=== PATIENT | male | born 1965 | race Caucasian/White ===

== ENCOUNTER 2017-03-10 11:06 | Inpatient (IN) | payer BC, OTHER ==
[~2017-03-10] VITALS: Ht 177.8 cm; Wt 109.3 kg
[2017-03-10] MEDS ORDERED: SODIUM CHLORIDE 0.9% 1000ML 1,000 ML IV STA (11:13)
[2017-03-10] MEDS ORDERED: MORPHINE SULFATE 4 MG/ML SYR IV STA (11:13)
[2017-03-10] MEDS ORDERED: ONDANSETRON HCL INJ 2 MG/ML VIAL IV STA (11:13)
[2017-03-10] MEDS ORDERED: PIPER-TAZ 3.375 GM 50 ML IV STA (11:13)
[2017-03-10] MEDS ORDERED: DIATRIZOATE MEGL/DIATRIZOA SOD 30 ML BTL PO ONE (11:44)
[2017-03-10 11:49] LABS: BASOPHILS # (AUTO) 0.1 (0.0-0.1); BASOPHILS % 0.6 % (0.0-1.0); EOSINOPHILS # (AUTO) 0.1 (0.0-0.4); EOSINOPHILS % 0.8 % (0.0-6.0); HEMATOCRIT 43.7 % (38.2-49.6); HEMOGLOBIN 15.4 g/dL (14.0-18.0); LYMPHOCYTES # (AUTO) 2.3 (1.0-3.2); LYMPHOCYTES % 18.9 % (18.0-39.1); MEAN CORPUSCULAR HGB CONC 35.2 g/dL (31-35); MEAN CORPUSCULAR VOLUME 90.9 fL (81-99); MONOCYTES # (AUTO) 0.9 (0.2-0.8); MONOCYTES % 7.6 % (4.4-11.3); NEUTROPHILS # (AUTO) 8.6 (2.1-6.9); NEUTROPHILS % 71.6 % (38.7-80.0); PLATELET COUNT 190 x10e3/uL (140-360); RED BLOOD COUNT 4.81 x10e6/uL (4.3-5.7); RED CELL DISTRIBUTION WIDTH 12.3 % (11.7-14.4)
[2017-03-10 12:11] LABS: ALANINE AMINOTRANSFERASE 34 IU/L (0-55); ALBUMIN 4.2 g/dL (3.5-5.0); ALBUMIN/GLOBULIN RATIO 1.1 (0.8-2.0); ALKALINE PHOSPHATASE 94 IU/L (40-150); ANION GAP 13.8 mmol/L (8-16); BLOOD UREA NITROGEN 11 mg/dL (7-26); BUN/CREATININE RATIO 11 (6-25); CALCIUM 9.4 mg/dL (8.4-10.2); CARBON DIOXIDE 27 mmol/L (22-29); CHLORIDE 101 mmol/L (98-107); CREATINE KINASE 99 IU/L (30-200); CREATININE, SERUM 0.98 mg/dL (0.72-1.25); EST GLOMERULAR FILTRATION RATE > 60 ML/MIN (60-); GLUCOSE 100 mg/dL (74-118); LIPASE 9 U/L (8-78); POTASSIUM 3.8 mmol/L (3.5-5.1); SODIUM 138 mmol/L (136-145)
[2017-03-10 12:18] LABS: TROPONIN I 0.006 ng/mL (0-0.300)
[2017-03-10] MEDS ORDERED: MORPHINE SULFATE 2 MG/ML SYR IV STA (12:48)
[2017-03-10] MEDS ORDERED: MORPHINE SULFATE 5 MG/ML VIAL IV SCH (13:00)
--- NOTE | 2017-03-10 13:16 | Diagnostic Imaging Report ---
PROCEDURE: CT ABDOMEN AND PELVIS WITH CONTRAST TECHNIQUE: The abdomen and pelvis were scanned utilizing a multidetector helical scanner from the diaphragm to the lesser trochanter after the IV administration of 100 cc of Isovue 370 and the oral administration of Gastrografin. Coronal and sagittal multiplanar reformations were obtained. COMPARISON: CT abdomen pelvis 08/10/2008. INDICATIONS: LEFT LOWER QUADRANT PAIN FINDINGS: LOWER THORAX: Normal. HEPATOBILIARY: Diffuse hepatic steatosis. No focal hepatic lesions. No biliary ductal dilatation. SPLEEN: No splenomegaly. PANCREAS: No focal masses or ductal dilatation. ADRENALS: No adrenal nodules. KIDNEYS/URETERS: No hydronephrosis, stones, or solid mass lesions. PELVIC ORGANS/BLADDER: Bilateral vasectomy clips. PERITONEUM / RETROPERITONEUM: No free air or fluid. LYMPH NODES: No lymphadenopathy. VESSELS: Severe atherosclerotic calcifications in the aorta and the origins of the celiac axis and bilateral renal arteries. Mild vertical appearance of the celiac axis with mild narrowing which suggest possible median arcuate ligament syndrome. GI TRACT: Significant inflammatory changes around the sigmoid colon surrounding multiple colonic diverticula. No free fluid or free air. No distention or wall thickening in the remaining bowel. 3.0 cm duodenal diverticulum off the second segment of the duodenum. Short appendix is normal. BONES AND SOFT TISSUES: Mild degenerative changes in lumbar spine. Grade 1 anterolisthesis of L5 on S1 with bilateral L5 pars defect and moderate disc space narrowing. Previous surgery around the umbilicus with a surgical clip. IMPRESSION: 1. Acute sigmoid diverticulitis. No evidence of perforation. 2. Severe vascular calcifications. 3. Diffuse hepatic steatosis. Dictated by: Alek Lo M.D. on 03/10/2017 at 13:25 Electronically approved by: Alek Lo M.D. on 03/10/2017 at 13:25
[2017-03-10 14:31] LABS: BILIRUBIN,URINE NEGATIVE (NEGATIVE); CLARITY,URINE CLEAR (CLEAR); COLOR,URINE YELLOW (YELLOW); KETONES,URINE NEGATIVE (NEGATIVE); LEUKOCYTE ESTERASE ,URINE NEGATIVE (NEGATIVE); NITRITE,URINE NEGATIVE (NEGATIVE); PROTEIN,URINE DIPSTICK NEGATIVE (NEGATIVE); URINE UROBILINOGEN 0.2 mg/dL (0.2 - 1)
[2017-03-10] MEDS ORDERED: METRONIDAZOLE 500MG/NS 100ML 100 ML IV STA (15:14)
[2017-03-10] MEDS ORDERED: CIPROFLOXACIN 400 MG/D5W 200ML 200 ML IV ONE (15:45)
[2017-03-10] MEDS ORDERED: MORPHINE SULFATE 2 MG/ML SYR IV PRN (16:00)
[2017-03-10] MEDS ORDERED: SODIUM CHLORIDE FLUSH 10 ML SYR INJ PRN (16:00)
[2017-03-10] MEDS: SODIUM CHLORIDE 0.9% 1000ML 1,000 ML IV SCH (16:34)
[2017-03-10] MEDS: METRONIDAZOLE 500MG/NS 100ML 100 ML IV SCH (17:00)
--- NOTE | 2017-03-10 17:09 | Diagnostic Imaging Report ---
PROCEDURE: A single AP view of the chest. COMPARISON: None. INDICATIONS: ABDOMEN PAIN FINDINGS: Lines/tubes: None. Lungs: The lungs are well inflated and clear. There is no evidence of pneumonia or pulmonary edema. Pleura: There is no pleural effusion or pneumothorax. Heart and mediastinum: The heart and the mediastinum are unremarkable. Bones: No acute bony abnormality. IMPRESSION: No acute cardiopulmonary disease. Dictated by: Alek Lo M.D. on 03/10/2017 at 17:18 Electronically approved by: Alek Lo M.D. on 03/10/2017 at 17:18
[2017-03-10] MEDS: ONDANSETRON HCL INJ 2 MG/ML VIAL IV PRN ×2 (17:12→21:08)
[2017-03-10] MEDS: MORPHINE SULFATE 4 MG/ML SYR IV PRN ×2 (17:12→21:09)
[2017-03-10 17:27] VITALS: BP 119/87
[2017-03-10] MEDS: LEVOFLOXACIN 750MG/D5W 150ML 150 ML IV SCH (17:59)
[2017-03-10] MEDS ORDERED: IOPAMIDOL 370 MG/ML 200 ML INFUS..BTL INJ ONE (18:41)
[2017-03-10 20:54] VITALS: BP 118/75
[2017-03-11] VITALS (8 sets, daily range): BP systolic 96–108; BP diastolic 60–63
[2017-03-11] MEDS: METRONIDAZOLE 500MG/NS 100ML 100 ML IV SCH ×3 (00:32→17:58)
[2017-03-11] MEDS: SODIUM CHLORIDE 0.9% 1000ML 1,000 ML IV SCH ×3 (00:32→16:15)
[2017-03-11] MEDS: ONDANSETRON HCL INJ 2 MG/ML VIAL IV PRN ×4 (01:44→20:17)
[2017-03-11] MEDS: MORPHINE SULFATE 4 MG/ML SYR IV PRN ×4 (01:44→20:17)
[2017-03-11 06:34] LABS: BASOPHILS # (AUTO) 0.1 (0.0-0.1); BASOPHILS % 0.8 % (0.0-1.0); EOSINOPHILS # (AUTO) 0.2 (0.0-0.4); EOSINOPHILS % 2.6 % (0.0-6.0); HEMATOCRIT 38.4 % (38.2-49.6); HEMOGLOBIN 13.4 g/dL (14.0-18.0); LYMPHOCYTES # (AUTO) 2.1 (1.0-3.2); LYMPHOCYTES % 28.8 % (18.0-39.1); MEAN CORPUSCULAR HEMOGLOBIN 31.7 pg (28-32); MEAN CORPUSCULAR HGB CONC 34.9 g/dL (31-35); MEAN CORPUSCULAR VOLUME 90.8 fL (81-99); MONOCYTES # (AUTO) 0.6 (0.2-0.8); MONOCYTES % 8.6 % (4.4-11.3); NEUTROPHILS # (AUTO) 4.2 (2.1-6.9); NEUTROPHILS % 58.4 % (38.7-80.0); PLATELET COUNT 159 x10e3/uL (140-360); RED BLOOD COUNT 4.23 x10e6/uL (4.3-5.7); RED CELL DISTRIBUTION WIDTH 12.4 % (11.7-14.4)
[2017-03-11 07:05] LABS: ALANINE AMINOTRANSFERASE 28 IU/L (0-55); ALBUMIN 3.2 g/dL (3.5-5.0); ALKALINE PHOSPHATASE 86 IU/L (40-150); ANION GAP 11.1 mmol/L (8-16); BLOOD UREA NITROGEN 9 mg/dL (7-26); BUN/CREATININE RATIO 10 (6-25); CALCIUM 8.8 mg/dL (8.4-10.2); CARBON DIOXIDE 28 mmol/L (22-29); CHLORIDE 103 mmol/L (98-107); CREATININE, SERUM 0.87 mg/dL (0.72-1.25); EST GLOMERULAR FILTRATION RATE > 60 ML/MIN (60-); GLUCOSE 89 mg/dL (74-118); POTASSIUM 4.1 mmol/L (3.5-5.1); SODIUM 138 mmol/L (136-145)
--- NOTE | 2017-03-11 14:02 | Consultation ---
DATE OF CONSULTATION: March 11, 2017 GASTROENTEROLOGY CONSULT REASON FOR CONSULT: Acute left lower quadrant pain for 2 days. He was found to have acute diverticulitis on clinical exam, as well as confirmed by CT. HISTORY OF PRESENT ILLNESS: A 51-year-old very pleasant white male with an unremarkable past medical history. However, he has a remarkable surgical history of perforated appendix 25 years ago that required emergency exploratory laparotomy followed by some other abdominal surgeries. He is not on any prescription drugs. He presented to the emergency room with acute onset of left lower quadrant pain. No fever or chills. No intestinal manifestations. Blood work revealed a white count of 12.04 along with normal electrolytes. CT of the abdomen and pelvis with IV and oral contrast revealed fatty liver and acute sigmoid diverticulitis without any local complications. Patient was started empirically on IV levofloxacin, as well as metronidazole. White count has come down to 7.18. He has never had any attack of sigmoid diverticulitis in the past. Patient has had a colonoscopy by Dr. Lai more than 8 years ago. As per patient, multiple polyps were removed. Colonoscopy was technically very difficult due to scar tissue. Patient ignored the interval surveillance colonoscopy. He has a never family history for colon cancer or polyps. REVIEW OF SYSTEMS: A 12-point system reviewed, and symptomatology is limited to GI system. PAST MEDICAL HISTORY: As per HPI. PAST SURGICAL HISTORY: As per HPI. SOCIAL HISTORY: and lives with his . No smoking, alcohol or any illicit drug use. ALLERGIES: NONE. HOME MEDICATIONS: None. INPATIENT MEDICATIONS: Reviewed. PHYSICAL EXAMINATION VITAL SIGNS: Temperature 97.9, pulse 64, respirations 18, blood pressure ranging from 108/62 to 99/62, oxygen saturation 95% on room air. GENERAL: Not in any acute distress. HEENT: Moist mucous membranes. Anicteric sclerae. No neck or axillary lymphadenopathy. CV: S1 and S2 regular. LUNGS: Bilaterally grossly clear. ABDOMEN: Soft. Healed midline lower quadrant ex lap scar. Left lower quadrant tenderness without any rebound, rigidity or guarding. Positive bowel sounds. EXTREMITIES: Warm. No leg edema. LABS: WBC has come down to 7.18 from 12.04, hemoglobin 13.4, hematocrit 38.4, MCV 90.8, and platelet count of 159,000. Electrolytes normal. Total bilirubin was 1.4, which has come down to 0.7 on repeat draw. Liver enzymes normal. CT of the abdomen and pelvis with IV and oral contrast showed: 1. Acute sigmoid diverticulitis. No evidence of perforation. 2. Severe vascular calcifications. 3. Diffuse hepatic steatosis. IMPRESSION: Uncomplicated sigmoid diverticulitis. PLAN: Will continue clear liquid diet. Continue intravenous levofloxacin, as well as metronidazole. Monitor him clinically. Will advance diet slowly. Once the patient's abdominal exam improves and he is no longer having localized tenderness, then the patient can be discharged home on a 10-day course of oral antibiotics. I have given him my card. I will follow him in my office within 1-2 weeks of discharge. Patient will benefit from surveillance colonoscopy, which can electively be done as an outpatient once diverticulitis has completely healed. I thank Dr. Jang for allowing me to participate in the care of this patient. Job#: [id number] RICARDO
[2017-03-11] MEDS: LEVOFLOXACIN 750MG/D5W 150ML 150 ML IV SCH (16:15)
--- NOTE | 2017-03-11 19:40 | History and Physical ---
Primary care physician: Dr. Tony Long CHIEF COMPLAINT: Acute abdominal pain associated with diverticulitis. HISTORY: The patient is a pleasant 51-year-old male who experienced a sudden onset of abdominal pain in the left lower quadrant area. The patient's pain was so severe he came to the emergency room. Severity described as 8/10. Patient's CT scan in the emergency room found that the patient has acute sigmoid diverticulitis. No evidence of perforation. He has severe vascular calcification, however, with diffuse hepatic steatosis. The patient is otherwise stable at this time. PAST MEDICAL HISTORY: Perforated appendix, status post appendectomy and lower back surgery. Large abdominal scar with a lot of scar in the abdominal area per patient. Chronic abdominal pain but not as severe as this pain. HOME MEDICATIONS: None. ALLERGIES: NO KNOWN DRUG ALLERGIES. SOCIAL HISTORY: Patient does not smoke or use alcohol. REVIEW OF SYSTEMS: Left lower quadrant abdominal pain associated with nausea and vomiting. PHYSICAL EXAMINATION: GENERAL: The patient is in no acute distress. He is awake. VITAL SIGNS: Temperature is 97. Blood pressure 103/63. Pulse rate 85. Respirations 20. HEENT: Normocephalic, atraumatic, anicteric. NECK: Supple grossly. PULMONARY: Diminished breath sounds. CARDIOVASCULAR: Is regular rate and rhythm. ABDOMEN: Soft. Tenderness in the left lower quadrant area. EXTREMITIES: No cyanosis or edema. NEUROLOGIC: No focal deficit. CT scan showed acute diverticulitis. WBC is 12.0. Hemoglobin 15.4. Hematocrit 43.7 and platelet count 190,000. Chemistry: Sodium is 138. Potassium 3.8, chloride 101, bicarb 27, BUN 11, creatinine 0.9. Glucose is 100. Urinalysis unremarkable. IMPRESSION: 1. Acute sigmoid diverticulitis. 2. Abdominal pain, nausea and vomiting. PLAN: Continue with IV antibiotics. Consultation with Dr. Matilda Youssef. Repeat lab in the morning. IV fluids. The patient should be on clear liquid diet for now. Job#: [id number]
[2017-03-12] VITALS: BP 112/58
[2017-03-12] MEDS: METRONIDAZOLE 500MG/NS 100ML 100 ML IV SCH ×3 (00:23→17:02)
[2017-03-12 01:17] VITALS: BP 112/58
[2017-03-12] MEDS: SODIUM CHLORIDE 0.9% 1000ML 1,000 ML IV SCH ×3 (01:39→22:30)
[2017-03-12] MEDS: ONDANSETRON HCL INJ 2 MG/ML VIAL IV PRN ×5 (04:30→21:38)
[2017-03-12] MEDS: MORPHINE SULFATE 4 MG/ML SYR IV PRN ×4 (04:41→21:38)
[2017-03-12 08:00] VITALS: BP 104/62
[2017-03-12] MEDS: POLYETHYLENE GLYCOL 3350 17 GM PACK PO SCH ×2 (09:12→16:38)
[2017-03-12 10:21] VITALS: BP 112/58
[2017-03-12 12:00] VITALS: BP 112/77
[2017-03-12] MEDS: LORATADINE 10 MG TAB PO SCH (14:19)
[2017-03-12] MEDS ORDERED: OLOPATADINE 5 ML BTL OP SCH (15:00)
[2017-03-12 16:00] VITALS: BP 112/67
[2017-03-12] MEDS: LEVOFLOXACIN 750MG/D5W 150ML 150 ML IV SCH (16:14)
[2017-03-12] MEDS: OLOPATADINE 5 ML BTL OP SCH ×2 (16:30→21:37)
--- NOTE | 2017-03-12 21:44 | Progress Note ---
DATE: March 12, 2017 DATE OF : 1965 SUBJECTIVE: Patient reports improvement in left lower abdominal pain. He is on clear liquid diet. He would like to get the diet advanced to at least soft food. No fever or chills. REVIEW OF SYSTEMS GENERAL: No weakness, fatigue or any fever. CVS: No chest pain, palpitations. RESPIRATORY: No cough or expectoration. INPATIENT MEDICATIONS: Morphine sulfate, intravenous metronidazole, as well as levofloxacin, along with other medications. PHYSICAL EXAMINATION VITAL SIGNS: Temperature 96.9, pulse 66, respirations 18, blood pressure 112/67, oxygen saturation 97% on room air. GENERAL: Not in any acute distress. HEENT: Moist mucous membranes. Anicteric sclerae. No neck or axillary adenopathy. CV: S1/S2 regular. LUNGS: Bilaterally grossly clear. ABDOMEN: Soft, palpable mild left lower quadrant tenderness, which has improved. No rebound, rigidity or guarding. Positive bowel sounds. EXTREMITIES: Warm. No leg edema. LAB: No lab drawn today. IMPRESSION: Patient has complicated sigmoid diverticulitis. PLAN: Continue IV fluid and intravenous antibiotic. Low-residue diet. Surgery consult. Follow clinically. If patient's abdominal examination progressively improves, then IV antibiotic can be switched to oral. He can be sent home on 7 to 10-day course of oral antibiotic. Will follow him in my office within 1 week after discharge. Patient has my business card. Job#: [id number] CQ
[2017-03-13] MEDS: METRONIDAZOLE 500MG/NS 100ML 100 ML IV SCH ×3 (00:13→17:45)
[2017-03-13 02:04] VITALS: BP 117/69
[2017-03-13] MEDS: MORPHINE SULFATE 4 MG/ML SYR IV PRN ×4 (04:30→19:42)
[2017-03-13 07:58] VITALS: BP 109/59
[2017-03-13] MEDS: SODIUM CHLORIDE 0.9% 1000ML 1,000 ML IV SCH (08:00)
[2017-03-13 08:42] VITALS: BP 109/59
[2017-03-13] MEDS: OLOPATADINE 5 ML BTL OP SCH ×3 (08:42→20:13)
[2017-03-13] MEDS: POLYETHYLENE GLYCOL 3350 17 GM PACK PO SCH ×2 (09:00→16:22)
[2017-03-13] MEDS: LORATADINE 10 MG TAB PO SCH (09:00)
--- NOTE | 2017-03-13 10:27 | Progress Note ---
DATE: March 13, 2017 GI PROGRESS NOTE SUBJECTIVE: Patient reports improvement in the left lower quadrant pain. He was able to tolerate solid food this morning. No fever or chills. REVIEW OF SYSTEMS GENERAL: No weakness, lethargy, drowsiness. CVS: No chest pain or palpitations. RESPIRATORY: No cough or expectoration. MEDICATIONS: Morphine and metronidazole as well as levofloxacin intravenously, Zofran, loratadine, and normal saline IV fluids. PHYSICAL EXAMINATION VITAL SIGNS: Temperature 97.9, pulse 73, respirations 18, blood pressure 109/59, oxygen saturation 97% on room air. GENERAL: Not in any acute distress. HEENT: Moist mucous membranes. Anicteric sclerae. No neck or axillary adenopathy. CV: S1, S2 regular. LUNGS: Bilaterally grossly clear. ABDOMEN: Soft and nondistended. Mild left lower quadrant tenderness on deep palpation without rebound, rigidity or any guarding. Positive bowel sounds. EXTREMITIES: Warm. No leg edema. LAB: No lab drawn today. IMPRESSION: Uncomplicated sigmoid diverticulitis. PLAN: The abdominal exam is still showing tenderness; therefore, we will continue intravenous antibiotic and continue low-residue diet. Surgery consult awaited. The patient explains that he has to attend some on Thursday. Therefore, he would like to get out of the hospital before Thursday. We will reassess his clinical exam tomorrow. Depending on that, if the abdominal exam improves, switch to oral antibiotic and discharge him home on 7 to 10 day course of oral antibiotic. We will follow him in my office within 1 week post discharge. The patient has my business card. Job#: [id number]
[2017-03-13 12:12] VITALS: BP 109/60
[2017-03-13] MEDS: LEVOFLOXACIN 750MG/D5W 150ML 150 ML IV SCH (16:22)
[2017-03-13 16:23] VITALS: BP 108/56
[2017-03-13] MEDS: ONDANSETRON HCL INJ 2 MG/ML VIAL IV PRN (19:42)
[2017-03-13] MEDS ORDERED: MONTELUKAST SODIUM 10 MG TAB PO SCH (21:00)
--- NOTE | 2017-03-13 23:48 | Consultation ---
DATE OF CONSULTATION: March 13, 2017 CHIEF COMPLAINT: Abdominal pain. HISTORY OF PRESENT ILLNESS: Patient is a 51-year-old male with a several day history of pain in left lower quadrant with small caliber stool, but denied constipation, diarrhea, fever, or chills. The pain has been pretty severe until hospitalization. PAST MEDICAL HISTORY: Negative for prior similar episode of attacks. No history of diverticulitis. Improving since the first day of hospitalization on antibiotics. No previous similar episode. PAST SURGICAL HISTORY: Positive for perforated appendicitis for which he underwent emergency surgery. Last colonoscopy was several years ago showing benign polyps. ALLERGIES: THE PATIENT HAS NO KNOWN DRUG ALLERGIES. SOCIAL HABITS: Patient denies smoking or alcohol use. REVIEW OF SYSTEMS: No chest pain, shortness of breath or cough. PHYSICAL EXAMINATION VITALS: Stable. He is afebrile. GENERAL: The patient is awake, alert and in no apparent distress. HEENT: Sclerae nonicteric. NECK: Supple. LUNGS: Clear. HEART: Regular rhythm. No murmurs. ABDOMEN: Soft with some guarding and tenderness in the left lower quadrant with mild rebound. EXTREMITIES: Without cyanosis or edema. The patient's white cell count is 7 with hemoglobin of 13. Creatinine of 0.8. CT scan showed sigmoid inflammation consistent with diverticulitis with no perforation. ASSESSMENT: Acute sigmoid diverticulitis, first occurrence. PLAN: IV antibiotics have been working and improving the patient's level of acute sigmoid diverticulitis. Plan to continue IV antibiotics. Diet advanced as tolerated. Thank you for the consultation. Job#: [id number] TN
[2017-03-14] VITALS: BP_SYST 101; BP_SYST 111; BP_DIAS 67; BP_DIAS 75
[2017-03-14] MEDS: METRONIDAZOLE 500MG/NS 100ML 100 ML IV SCH ×2 (00:46→08:15)
[2017-03-14 04:00] VITALS: BP 112/79
[2017-03-14 07:26] VITALS: BP 107/64
[2017-03-14] MEDS: ONDANSETRON HCL INJ 2 MG/ML VIAL IV PRN ×2 (08:15→12:53)
[2017-03-14] MEDS: OLOPATADINE 5 ML BTL OP SCH ×2 (09:00→15:37)
[2017-03-14] MEDS: LORATADINE 10 MG TAB PO SCH (09:00)
[2017-03-14] MEDS: POLYETHYLENE GLYCOL 3350 17 GM PACK PO SCH (09:00)
[2017-03-14 12:00] VITALS: BP 106/69
[2017-03-14] MEDS: MORPHINE SULFATE 4 MG/ML SYR IV PRN (12:53)
[2017-03-14] MEDS ORDERED: NORCO 7.5-3251 EACH PO (15:22)
[2017-03-14] MEDS ORDERED: SENNA LAXATIVE1 EACH PO (15:25)
[2017-03-14] MEDS ORDERED: ZOFRAN ODT4 MG SL (15:26)
[2017-03-14] MEDS ORDERED: CIPRO500 MG PO (15:27)
[2017-03-14] MEDS ORDERED: FLAGYL250 MG PO (15:28)
[2017-03-14] MEDS ORDERED: MIRALAX17 GM PO (15:29)
[2017-03-14] MEDS ORDERED: SINGULAIR10 MG PO (15:30)
[2017-03-14] MEDS ORDERED: CLARITIN10 M1 PO (15:32)
[2017-03-14] MEDS ORDERED: PATANOL5 ML OU (15:34)
--- NOTE | 2017-03-15 15:16 | Discharge Summary ---
[employer] CHIEF ENGINEER: Dr. David Liu and Dr. Matilda Youssef. FINAL DIAGNOSES 1. Acute sigmoid diverticulitis associated with abdominal pain, fever and leukocytosis . 2. Nausea and vomiting, resolved. A 51-year-old male came in with acute diverticulitis in the sigmoid area. Pain was quite severe. The patient was admitted. IV antibiotics and IV fluids initiated. N.p.o. and subsequent clear liquid diet and now soft GI diet. The patient is stable. No surgical intervention. He is to go home today. Follow up with Dr. Youssef for colonoscopy in approximately 6 weeks. Patient was given diet instructions. He will go home with 7 days of Flagyl and Cipro along with pain medication. The patient is stable and discharged home today. Follow up with Dr. Youssef in approximately 1 week. Job#: [id number] RICARDO
== END 2017-03-14 15:55 | disposition home or self-care (01) | DRG 392 ==
LOC: ER 11:06 → ERHOLD 16:40 → MED/SURG2 16:42 → OBSVTOIN 03-12 11:55
PROVIDERS: ADMIT Internal Medicine; ATTEND Internal Medicine
DX: K57.32 Diverticulitis of large intestine without perforation or abscess without bleeding (principal); K76.0 Fatty (change of) liver, not elsewhere classified; H10.10 Acute atopic conjunctivitis, unspecified eye
CPT/HCPCS: 36415; 71045; 74177; 80053; 81001; 82550; 82553; 83690; 84484; 85025; 87086; 93005; 99284; G0378; J2270; J2405; J2543; J7030; Q9967

== ENCOUNTER 2018-11-20 14:39 | Inpatient (IN) | payer BC ==
[~2018-11-20] VITALS: Ht 180.3 cm; Wt 95.3 kg
[~2018-11-20 14:39] MED LIST: CIPRO500 MG PO; CLARITIN10 M1 PO; FLAGYL250 MG PO; MIRALAX17 GM PO; NORCO 7.5-3251 EACH PO; PATANOL5 ML OU; SENNA LAXATIVE1 EACH PO; SINGULAIR10 MG PO; ZOFRAN ODT4 MG SL
--- OUTSIDE RECORDS SUMMARY | 2018-11-20 14:41 | XMS REPORT ---
Author Author [facility] Address Unknown Phone Unavailable Care Team Providers Care Safety Glass Installer Name Role Phone ETHEL CRISTOBAL Unavailable Unavailable Payers Payer Name Policy Type Policy Number Effective Date Expiration Date Problems This patient has no known problems. Allergies, Adverse Reactions, Alerts Allergy Name Allergy Type Status Severity Reaction(s) Onset Date Inactive Date Treating Clinician Comments No Known Drug Allergies DA Active U 2018-03-16 00:00:00 No Known Contrast Allergies DA Active U 2006-11-14 00:00:00 No Known Drug Allergies DA Active U 2006-11-14 00:00:00 No Known Food Allergies DA Active U 2006-11-14 00:00:00 No Known Other Allergies DA Active U 2006-11-14 00:00:00 Medications This patient has no known medications. Results Test Description Test Time Test Comments Text Results Atomic Results Result Comments SURGICAL SPECIMENS 2018-03-24 07:51:00 RUN DATE: 03/24/18 [facility] *LIVE* PAGE 1 RUN TIME: 750 Specimen Inquiry RUN USER: INTERFACE PATIENT: MEG ANTHONY LOC: JOYCELYN U #: [id number] AGE/SX: 52/M ROOM: [facility] RE03/16/18REG DR: Agusto Reed MD : 61 BED: 2 DIS: 03/18/18 STATUS: DIS IN TLOC: SPEC #: [id number] RECD: 03/18/18 STATUS: LEONOR CARRERO #: [id number] LAYLA: 03/18/18 [facility] DR: Agusto Reed MD ENTERED: 03/20/18 SP TYPE: SURG SPEC OTHR DR: Joaquín Simms MD, David S MD No Primary Care PhysicianORDERED: LEVEL 4 CODES: [id number] - ESOPHAGUS, NOS [id number] - STOMACH, NOS COPIES TO: Joaquín Simms MD [address] [place] [address] David Samano MD [address] [id number] Agusto Reed MD [address] [place] [phone] No Primary Care Physician Use by ED only for patient without primary care physician ED USE ONLY-Pt.w/o primary MD PROCEDURES: GM LEVEL 4 (Incomplete) TISSUES: 1. STOMACH, NOS - Stomach, bx. 2. ESOPHAGUS, NOS - Esophagus, bx. FINAL DIAGNOSIS Stomach, biopsy: Mild chronic gastritis, nonactive; no Helicobacter pylori organisms identified. Esophagus, bx.: Chronic esophagitis with goblet cell metaplasia (clinical correlation regarding diagnosis of Perez's esophagus is suggested); no dysplasia or malignancy seen. CONTINUED ON NEXT PAGE --------RUN DATE: 03/24/18 [facility] *LIVE* PAGE 2 RUN TIME: 750 Specimen Inquiry RUN USER: INTERFACE SPEC #: [id number] PATIENT: MEG ANTHONY #[id number] (Continued) GROSS AND MICROSCOPIC GROSS EXAMINATION: Received is/are the specimen/s designated with the appropriate dimensions and block designation: 1. Stomach, bx.: 3 segments of pink-doran tissue, measuring up to 0.5 cm. in greatest dimension each (A). 2. Esophagus, bx.: 2 segments of pink-doran tissue, measuring up to 0.3 cm. in greatest dimension each (B). MICROSCOPIC EXAMINATION: The gastric mucosa reveals mild foveolar hyperplasia with increased fibrosis and chronic inflammation in the lamina propria. No significant acute inflammation is identified. No Helicobacter pylori organisms are identified with the immunostain, and no intestinal metaplasia is identified with the alcian blue/PAS stain. (When special stains have been reviewed, the appropriate positive/negative controls have been reviewed and are appropriately positive/negative). The glandular epithelium does show specialized intestinal metaplasia. The Alcian blue PAS stain is positive for specialized intestinal metaplasia. No definite evidence of dysplasia is identified in these sections. Clinical correlation for the diagnosis of Perez's esophagus is necessary. POST-OP DIAGNOSIS Duodenal diverticulum, salmon colored mucosa, gastritis PRE-OP DIAGNOSIS Chest pain Signed SIGNATURE ON FILE Haley Huber MD 03/24/18 0751 END OF REPORT - CT ANGIO CHEST 2018-03-18 09:53:00 Name: MEG ANTHONY [facility] : 1965 Age/S: 52 / M [address] [place] [address] Unit #: [id number] Loc: [place] [address] Phys: Merle William NP Acct: [id number] Dis Date: Status: ADM IN PHONE #: [phone] Exam Date: 03/18/2018926 FAX #: [phone] Reason: r/o pe EXAMS: CPT CODE: [id number] CT ANGIO CHEST [address] PROCEDURE: CTA CHEST INDICATION: Unstable angina COMPARISON: None. TECHNIQUE: CTA of the pulmonary arteries was performed with 100 ml Isovue 300 intravenous contrast. Multiplanar and 3-D MIP angiographic reconstructions are reviewed. CT imaging performed at this location utilizes radiation dose optimization techniques which include one or more of the following: - Automated exposure control -Adjustment of the mA and/or kV according to patient size -Use of iterative reconstruction technique CT Radiation Dose DLP 888 mGy-cm FINDINGS: PULMONARY ARTERIES: Normal enhancement without intraluminal filling defect. MEDIASTINUM: The mediastinal contents are unremarkable. No adenopathy. HEART: The cardiac chambers are unremarkable. No pericardial effusion. Severe coronary artery calcification and/or stents. VASCULAR STRUCTURES: The thoracic aorta and great vessels are unremarkable. The superior vena cava is unremarkable. LUNGS: There is minimal left lung base linear atelectasis and/or fibrosis. No pleural abnormality. UPPER ABDOMEN: Survey of viscera may be limited by early phase of contrast enhancement. Hepatic steatosis noted. MUSCULOSKELETAL: T7-8 is fused. Related T8-9 intervertebral disc space narrowing. No acute osseous abnormality. IMPRESSION: 1. No CT evidence for pulmonary embolism. 2. Severe coronary artery calcification and/or stents. 3. T7-8 is fused. Related to a T8-9 degenerative disc disease. 4. Hepatic steatosis. PAGE 1 Signed Report (CONTINUED) Name: MEG ANTHONY [facility] : 1965 Age/S: 52 / M [address] [place] [address] Blvd Unit #: [id number] Loc: [place] [address] Phys: Merle William NP Acct: [id number] Dis Date: Status: ADM IN PHONE #: [phone] Exam Date: 03/18/2018926 FAX #: [phone] Reason: r/o pe EXAMS: CPT CODE: [id number] CT ANGIO CHEST 77052 <Cont inued> SL: [id number] at 0953 Reported and signed by: Oscar Holman M.D. CC: David Samano MD; Merle William NP; Agusto Fan MD Technologist:RT Marcelina(R)(CT) CTDI: DLP: Trnscb Date/Time: 03/18/2018 (0953) Jose Rafael Orig Print D/T: S: 03/18/2018 (0956) CTDI: DLP: PAGE 2 Signed Report COMPREHENSIVE METABOLIC PANEL 2018-03-18 05:06:00 SODIUM (test code=NA) 142 mEq/L 134-147 POTASSIUM (test code=K) 4.2 mEq/L 3.4-5.0 CHLORIDE (test code=CL) 110 mEq/L 100-108 CARBON DIOXIDE (test code=CO2) 26 mEq/L 21-33 ANION GAP (test code=GAP) 10 0-20 GLUCOSE (test code=GLU) 99 mg/dL 70-110 BLOOD UREA NITROGEN (test code=BUN) 13 mg/dL 7-18 GLOMERULAR FILTRATION RATE (test code=GFR) 87.9 90-95 Units of measure=ml/min/1.73 m2 CREATININE (test code=CREAT) 0.9 mg/dL 0.6-1.3 TOTAL PROTEIN (test code=PROT) 6.3 g/dL 6.4-8.2 ALBUMIN (test code=ALB) 3.30 g/dL 3.4-5.0 CALCIUM (test code=CA) 8.5 mg/dL 8.0-10.5 BILIRUBIN TOTAL (test code=BILT) 0.40 mg/dL 0.0-1.0 SGOT/AST (test code=AST) 22 IUnit/L 15-37 SGPT/ALT (test code=ALT) 41 IUnit/L 15-65 ALKALINE PHOSPHATASE TOTAL (test code=ALKP) 71 IUnit/L 20-125 LIPID PROFILE (CORONARY RISK)2018-03-18 05:06:00* Test Item Value Reference Range Comments TRIGLYCERIDES (test code=TRIG) 123 mg/dL 40-150 CHOLESTEROL (test code=CHOL) 176 mg/dL <200 CHOLESTEROL/HDL RATIO (test code=CHOLHDL) 5.68 RATIO 3.43-4.97 RISK ASSOCIATED WITH CHOL/HDL RATIOS: RISK MALE FEMALE1/2 AVERAGE 3.43 3.27AVERAGE 4.97 4.442X AVERAGE 9.55 7.053X AVERAGE 23.39 11.04 NOTE THAT THE REFERENCE VALUE IS RELATEDTO RISK LEVELS RECOMMENDED BY THE NATL.HEART, LUNG, AND BLOOD INST. HDL CHOLESTEROL (test code=HDL) 31.0 mg/dL 32-72 LIPOPROTEIN LDL (test code=LDL) 128 mg/dL 0-100 <100 [id number] NEAR OPTIMAL/ABOVE [id number] [id number] HIGH>LR=520 VERY HIGH*Guidelines provided by the National Cholesterol EducationProgram Adult Treatment Panel III [id number] 05:06:00* Test Item Value Reference Range Comments PHOSPHOROUS (test code=PHOS) 3.3 mg/dL 2.5-4.9 [id number] 05:06:00* Test Item Value Reference Range Comments MAGNESIUM (test code=MAG) 2.10 mg/dL 1.8-2.4 PROTHROMBIN [id number] 05:02:00* Test Item Value Reference Range Comments PROTHROMBIN TIME PATIENT (test code=PTP) 11.3 SECONDS 9.3-12.9 INTERNATIONAL NORMAL RATIO (test code=INR) 1.0 0.8-1.2 TARGET INR BY INDICATION Indication INR1. Prophylaxis of venous thrombosis 2.0 - 3.0 (orthopedic surgery), Prophylaxis of venous thrombosis (other than high-risk surgery), Treatment of Deep Vein Thrombosis/Pulmonary Embolism, Prevention of systemic embolism - Tissue heart valves, Acute Myocardial Infarction (to prevent systemic embolism), Valvular heart disease, Atrial Fibrillation, Bileaflet mechanical valve in aortic position.2. Mechanical prosthetic valves (high risk), 2.5 - 3.5 Presence of Lupus Anticoagulant or Antiphospholipid Antibodies, Prevention of systemic embolism - Acute Myocardial Infarction (to prevent recurrent infarct). CBC W/AUTO [id number] 04:46:00* Test Item Value Reference Range Comments WHITE BLOOD CELL (test code=WBC) 6.74 x10 3/uL 4.5-11.0 RED BLOOD CELL (test code=RBC) 3.97 x10 6/uL 4.00-5.60 HEMOGLOBIN (test code=HGB) 13.0 g/dL 12.5-16.9 HEMATOCRIT (test code=HCT) 38.1 % 37.5-50.7 MEAN CELL VOLUME (test code=MCV) 96.0 fL 81.0-99.0 MEAN CELL HGB (test code=MCH) 32.7 pg 27.0-33.0 MEAN CELL HGB CONCETRATION (test code=MCHC) 34.1 g/dL 33.0-37.0 RED CELL DISTRIBUTION WIDTH CV (test code=RDW) 12.3 % 11.5-14.5 RED CELL DISTRIBUTION WIDTH SD (test code=RDW-SD) 43.2 fL 37.0-54.0 PLATELET COUNT (test code=PLT) 143 x10 3/uL 150-400 MEAN PLATELET VOLUME (test code=MPV) 11.0 fL 7.0-9.0 NEUTROPHIL % (test code=NT%) 60.4 % 56.0-77.0 IMMATURE GRANULOCYTE % (test code=IG%) 0.6 % 0.0-2.0 LYMPHOCYTE % (test code=LY%) 28.3 % 14.0-32.0 MONOCYTE % (test code=MO%) 7.0 % 4.8-9.0 EOSINOPHIL % (test code=EO%) 2.5 % 0.3-3.7 BASOPHIL % (test code=BA%) 1.2 % 0.0-2.0 NUCLEATED RBC % (test code=NRBC%) 0.0 % 0-0 NEUTROPHIL # (test code=NT#) 4.07 x10 3/uL 2.0-7.6 IMMATURE GRANULOCYTE # (test code=IG#) 0.04 x10 3/uL 0.00-0.03 LYMPHOCYTE # (test code=LY#) 1.91 x10 3/uL 1.0-3.8 MONOCYTE # (test code=MO#) 0.47 x10 3/uL 0.1-0.8 EOSINOPHIL # (test code=EO#) 0.17 x10 3/uL 0.0-0.2 BASOPHIL # (test code=BA#) 0.08 x10 3/uL 0.0-0.2 NUCLEATED RBC # (test code=NRBC#) 0.00 x10 3/uL 0.0-0.1 MANUAL DIFF REQUIRED (test code=MDIFF) NO [id number] 23:25:00* Test Item Value Reference Range Comments D-DIMER (test code=DDIMER) 283 ng/mlFEU <=500 THROMBOSIS AND/OR PULMONARY EMBOLISM AND THE CLINICAL CUT- OFF VALUE FOR EXCLUSION (500 ng/mL FEU) OF THESE CONDITIONSIS VALIDATED BY THE BAGGING MACHINE OPERATOR OF THE METHOD. A NEGATIVE D-DIMER RESULT WHEN COMBINED WITH A CLINICALASSESSMENT OF LOW PRETEST PROBABILITY HAS BEEN SHOWN TO HAVEA HIGH NEGATIVE PREDICTIVE VALUE OF DVT OR PE. D-DIMER VALUES >500 ng/mL FEU ARE NOT DIAGNOSTIC FOR DVT, PEor DIC WITHOUT OTHER CONFIRMATORY TESTS AND APPROPRIATECLINICAL EUALUATIONS. - DUP VEIN [id number] 20:44:00 Name: MEG ANTHONY [facility] : 1965 Age/S: 52 / M [address] [place] [address] Unit #: [id number] Loc: [place] [address] Phys: Merle William NP Acct: [id number] Dis Date: Status: ADM IN PHONE #: [phone] Exam Date: 03/17/20182040 FAX #: [phone] Reason: r/o dvt pt with chest pain and sob EXAMS: CPT CODE: [id number] DUP VEIN BETZAIDA 62009 BILATERAL LOWER EXTREMITY VENOUS DUPLEX ULTRASOUND INDICATION: RULE OUT DVT PATIENT WITH CHEST PAIN AND DYSPNEA. TECHNIQUE: Venous duplex nielson scale, color Doppler and spectral Doppler ultrasound of the bilateral lower extremities was performed. COMPARISONS: None FINDINGS: Right: The common femoral, superficial femoral, popliteal, and posterior tibial veins are completely compressible, reveal spontaneous and phasic flow and augmentation. The greater saphenous vein reveals no thrombus. Left: The common femoral, superficial femoral, popliteal, and posterior tibial veins are completely compressible, reveal spontaneous and phasic flow and augmentation. The greater saphenous vein reveals no thrombus. IMPRESSION: 1. There is no DVT in either lower extremity. at 2043 Reported and signed by: Otto Shaw D.O. CC: David Samano MD; Merle William NP; Agusto Fan MD Technologist: Deepthi Barnett RDMS() Trnscb Date/Time: 03/17/2018 (2043) [email or web address] Orig Print D/T: S: 03/17/2018 (2046) Probe: PAGE 1 Signed Report - XR CHEST 1 [id number] 10:10:00 FAX: David Queen MD [phone] [place]: St: ADM FAX: Agusto Ramos I [phone] Name: MEG ANTHONY RO[facility] : 1965 Age/S: 52/M [address] [place] [address] Blvd Unit #: [id number] Loc: G[address] [place] [address] Phys: David Samano MD Acct: [id number] Dis Date: Status: ADM IN PHONE #: [phone] Exam Date: 03/17/2018 1004 FAX #: [phone] Reason: PRE OP ANESTHESIA PROTOCOL EXAMS: CPT CODE: [id number] XR CHEST 1 V 18490 CHEST, SINGLE VIEW HISTORY: Unstable angina, preop No comparison. FINDINGS: The lungs are clear. The heart size and pulmonary vascularity are within normal limits. IMPRESSION: No active process. SL:01 at 1010 Reported and signed by: Oscar Holman M.D. CC: David Samano MD; Agusto Fan MD Technologist: Breann MaldonadoRT(R) Trnscrd Date/Time/By: 03/17/2018 (1010) : By: Jose Rafael Orig Print D/T: S: 03/17/2018 (1014) PAGE 1 Signed Report PROTHROMBIN [id number] 06:59:00* Test Item Value Reference Range Comments PROTHROMBIN TIME PATIENT (test code=PTP) 11.6 SECONDS 9.3-12.9 INTERNATIONAL NORMAL RATIO (test code=INR) 1.0 0.8-1.2 TARGET INR BY INDICATION Indication INR1. Prophylaxis of venous thrombosis 2.0 - 3.0 (orthopedic surgery), Prophylaxis of venous thrombosis (other than high-risk surgery), Treatment of Deep Vein Thrombosis/Pulmonary Embolism, Prevention of systemic embolism - Tissue heart valves, Acute Myocardial Infarction (to prevent systemic embolism), Valvular heart disease, Atrial Fibrillation, Bileaflet mechanical valve in aortic position.2. Mechanical prosthetic valves (high risk), 2.5 - 3.5 Presence of Lupus Anticoagulant or Antiphospholipid Antibodies, Prevention of systemic embolism - Acute Myocardial Infarction (to prevent recurrent infarct). THROMBOPLASTIN TIME [id number] 06:59:00* Test Item Value Reference Range Comments THROMBOPLASTIN TIME PARTIAL (test code=PTT) 34.1 Seconds 25.0-39.5 Therapeutic Range: 61.8-83.8 Sec Effective 03/16/2013 BASIC METABOLIC [id number] 06:41:00* Test Item Value Reference Range Comments SODIUM (test code=NA) 140 mEq/L 134-147 POTASSIUM (test code=K) 4.1 mEq/L 3.4-5.0 CHLORIDE (test code=CL) 110 mEq/L 100-108 CARBON DIOXIDE (test code=CO2) 24 mEq/L 21-33 ANION GAP (test code=GAP) 10 0-20 GLUCOSE (test code=GLU) 93 mg/dL 70-110 BLOOD UREA NITROGEN (test code=BUN) 12 mg/dL 7-18 GLOMERULAR FILTRATION RATE (test code=GFR) 100.7 90-95 Units of measure=ml/min/1.73 m2 CREATININE (test code=CREAT) 0.8 mg/dL 0.6-1.3 CALCIUM (test code=CA) 8.6 mg/dL 8.0-10.5 COMMENTS: To be done morning of Heart CathCBC W/AUTO [id number] 06:18:00* Test Item Value Reference Range Comments WHITE BLOOD CELL (test code=WBC) 8.42 x10 3/uL 4.5-11.0 RED BLOOD CELL (test code=RBC) 4.53 x10 6/uL 4.00-5.60 HEMOGLOBIN (test code=HGB) 14.7 g/dL 12.5-16.9 HEMATOCRIT (test code=HCT) 43.1 % 37.5-50.7 MEAN CELL VOLUME (test code=MCV) 95.1 fL 81.0-99.0 MEAN CELL HGB (test code=MCH) 32.5 pg 27.0-33.0 MEAN CELL HGB CONCETRATION (test code=MCHC) 34.1 g/dL 33.0-37.0 RED CELL DISTRIBUTION WIDTH CV (test code=RDW) 12.5 % 11.5-14.5 RED CELL DISTRIBUTION WIDTH SD (test code=RDW-SD) 43.3 fL 37.0-54.0 PLATELET COUNT (test code=PLT) 186 x10 3/uL 150-400 MEAN PLATELET VOLUME (test code=MPV) 11.2 fL 7.0-9.0 NEUTROPHIL % (test code=NT%) 57.3 % 56.0-77.0 IMMATURE GRANULOCYTE % (test code=IG%) 0.6 % 0.0-2.0 LYMPHOCYTE % (test code=LY%) 31.0 % 14.0-32.0 MONOCYTE % (test code=MO%) 7.6 % 4.8-9.0 EOSINOPHIL % (test code=EO%) 2.3 % 0.3-3.7 BASOPHIL % (test code=BA%) 1.2 % 0.0-2.0 NUCLEATED RBC % (test code=NRBC%) 0.0 % 0-0 NEUTROPHIL # (test code=NT#) 4.83 x10 3/uL 2.0-7.6 IMMATURE GRANULOCYTE # (test code=IG#) 0.05 x10 3/uL 0.00-0.03 LYMPHOCYTE # (test code=LY#) 2.61 x10 3/uL 1.0-3.8 MONOCYTE # (test code=MO#) 0.64 x10 3/uL 0.1-0.8 EOSINOPHIL # (test code=EO#) 0.19 x10 3/uL 0.0-0.2 BASOPHIL # (test code=BA#) 0.10 x10 3/uL 0.0-0.2 NUCLEATED RBC # (test code=NRBC#) 0.00 x10 3/uL 0.0-0.1 MANUAL DIFF REQUIRED (test code=MDIFF) NO COMMENTS: To be done morning of Heart [id number] 16:53:00* Test Item Value Reference Range Comments CREATININE (test code=CREAT) 1.0 mg/dL 0.6-1.3 [id number] 16:53:00* Test Item Value Reference Range Comments TROPONIN-I (test code=TROPI) < 0.015 ng/mL 0.000-0.045 Negative: <=0.045 Positive: >=0.046 Correlation with serial results, other cardiac markers andclinical findings is necessary to determine the clinicalsignificance of this result. Results using different methodologies should not be comparedto one another as quantitative results may vary by method. COMPREHENSIVE METABOLIC [id number] 16:03:00* Test Item Value Reference Range Comments SODIUM (test code=NA) 142 mEq/L 134-147 POTASSIUM (test code=K) 3.4 mEq/L 3.4-5.0 CHLORIDE (test code=CL) 107 mEq/L 100-108 CARBON DIOXIDE (test code=CO2) 30 mEq/L 21-33 ANION GAP (test code=GAP) 8 0-20 GLUCOSE (test code=GLU) 143 mg/dL 70-110 BLOOD UREA NITROGEN (test code=BUN) 15 mg/dL 7-18 GLOMERULAR FILTRATION RATE (test code=GFR) 69.8 90-95 Units of measure=ml/min/1.73 m2 CREATININE (test code=CREAT) 1.1 mg/dL 0.6-1.3 TOTAL PROTEIN (test code=PROT) 6.8 g/dL 6.4-8.2 ALBUMIN (test code=ALB) 3.60 g/dL 3.4-5.0 CALCIUM (test code=CA) 8.4 mg/dL 8.0-10.5 BILIRUBIN TOTAL (test code=BILT) 0.50 mg/dL 0.0-1.0 SGOT/AST (test code=AST) 23 IUnit/L 15-37 SGPT/ALT (test code=ALT) 48 IUnit/L 15-65 ALKALINE PHOSPHATASE TOTAL (test code=ALKP) 81 IUnit/L 20-125 CBC W/AUTO [id number] 15:48:00* Test Item Value Reference Range Comments WHITE BLOOD CELL (test code=WBC) 7.28 x10 3/uL 4.5-11.0 RED BLOOD CELL (test code=RBC) 4.07 x10 6/uL 4.00-5.60 HEMOGLOBIN (test code=HGB) 13.4 g/dL 12.5-16.9 HEMATOCRIT (test code=HCT) 39.1 % 37.5-50.7 MEAN CELL VOLUME (test code=MCV) 96.1 fL 81.0-99.0 MEAN CELL HGB (test code=MCH) 32.9 pg 27.0-33.0 MEAN CELL HGB CONCETRATION (test code=MCHC) 34.3 g/dL 33.0-37.0 RED CELL DISTRIBUTION WIDTH CV (test code=RDW) 12.4 % 11.5-14.5 RED CELL DISTRIBUTION WIDTH SD (test code=RDW-SD) 43.6 fL 37.0-54.0 PLATELET COUNT (test code=PLT) 170 x10 3/uL 150-400 MEAN PLATELET VOLUME (test code=MPV) 11.0 fL 7.0-9.0 NEUTROPHIL % (test code=NT%) 68.1 % 56.0-77.0 IMMATURE GRANULOCYTE % (test code=IG%) 0.5 % 0.0-2.0 LYMPHOCYTE % (test code=LY%) 23.2 % 14.0-32.0 MONOCYTE % (test code=MO%) 5.6 % 4.8-9.0 EOSINOPHIL % (test code=EO%) 1.6 % 0.3-3.7 BASOPHIL % (test code=BA%) 1.0 % 0.0-2.0 NUCLEATED RBC % (test code=NRBC%) 0.0 % 0-0 NEUTROPHIL # (test code=NT#) 4.95 x10 3/uL 2.0-7.6 IMMATURE GRANULOCYTE # (test code=IG#) 0.04 x10 3/uL 0.00-0.03 LYMPHOCYTE # (test code=LY#) 1.69 x10 3/uL 1.0-3.8 MONOCYTE # (test code=MO#) 0.41 x10 3/uL 0.1-0.8 EOSINOPHIL # (test code=EO#) 0.12 x10 3/uL 0.0-0.2 BASOPHIL # (test code=BA#) 0.07 x10 3/uL 0.0-0.2 NUCLEATED RBC # (test code=NRBC#) 0.00 x10 3/uL 0.0-0.1 MANUAL DIFF REQUIRED (test code=MDIFF) NO CT ABDOMEN/PELVIS [place] [address] Patient Name: SRINIVASA ANTHONY MR #: [id number] : 1965 Age/Sex: 51/M Req #: [id number] Adm Physician: Ordered by: SHELBY PHOENIX NP Report #: [id number] Location: ER Room/Bed: Procedure: [id number] CT/CT ABDOMEN/PELVIS W Exam Date: Exam Time: REPORT STATUS: Signed PROCEDUR E: CT ABDOMEN AND PELVIS WITH CONTRAST TECHNIQUE: The abdomen and pelvi s were scanned utilizing a multidetector helical scanner from the diaphragm t o the lesser trochanter after the IV administration of 100 cc of Isovue 370 a nd the oral administration of Gastrografin. Coronal and sagittal multiplanar reformations were obtained. COMPARISON: CT abdomen pelvis 08/10/2008. INDICATIONS: LEFT LOWER QUADRANT PAIN FINDINGS: LOWER THORAX: Norm al. HEPATOBILIARY: Diffuse hepatic steatosis. No focal hepatic lesions. N o biliary ductal dilatation. SPLEEN: No splenomegaly. PANCREAS: No focal masses or ductal dilatation. ADRENALS: No adrenal nodules. KIDNEYS/URETE RS: No hydronephrosis, stones, or solid mass lesions. PELVIC ORGANS/BLADDER: B ilateral vasectomy clips. PERITONEUM / RETROPERITONEUM: No free air or flu id. LYMPH NODES: No lymphadenopathy. VESSELS: Severe atherosclerotic calcifi cations in the aorta and the origins of the celiac axis and bilateral renal a rteries. Mild vertical appearance of the celiac axis with mild narrowing whic h suggest possible median arcuate ligament syndrome. GI TRACT: Signific ant inflammatory changes around the sigmoid colon surrounding multiple coloni c diverticula. No free fluid or free air. No distention or wall thickening in the remaining bowel. 3.0 cm duodenal diverticulum off the second segment of the duodenum. Short appendix is normal. BONES AND SOFT TISSUES: Mild de generative changes in lumbar spine. Grade 1 anterolisthesis of L5 on S1 with bilateral L5 pars defect and moderate disc space narrowing. Previous surgery around the umbilicus with a surgical clip. IMPRESSION: 1. Acute s igmoid diverticulitis. No evidence of perforation. 2. Severe vascular calcific ations. 3. Diffuse hepatic steatosis. Dictated by: Alek Herbert M.D. on at 13:25 Electronically approved by: Alek Herbert M.D. on 03/10/2017 at 13:25 Dictated By: ALEK HERBERT MD 1325 Transcribed By: BRET on 03/10/17 1325 COPY TO: SHELBY PHOENIX SITE MEDICAL DIRECTOR CHEST SINGLE (PORTABLE) [place] [address] Patient Name: SRINIVASA ANTHONY MR #: [id number] : 1965 Age/Sex: 51/M Req #: [id number] Adm Physician: ETHEL CRISTOBAL MD Ordered by: SHELBY PHOENIX SITE MEDICAL DIRECTOR Report #: [id number] Location: [facility] Room/Bed: Critical access hospital Procedure: [id number] DX/CHEST SINGLE (PORTABLE) Exam Date: 03/10/17 Exam Time: 111 5 REPORT STATUS: Signed PROCEDURE: A single AP view of the chest. COMPARISON: None. INDICATIONS: ABDOMEN PAIN FINDINGS: Teresita es/tubes: None. Lungs: The lungs are well inflated and clear. There is n o evidence of pneumonia or pulmonary edema. Pleura: There is no pleura l effusion or pneumothorax. Heart and mediastinum: The heart and the medi astinum are unremarkable. Bones: No acute bony abnormality. IMPRESS ION: No acute cardiopulmonary disease. Dictated by: Alek Herbert M.D. on 03/10/2017 at 17:18 Electronically approved by: Alek Herbert M.D. on 2017 at 17:18 Dictated By: ALEK HERBERT MD 1718 Transcribed By: BRET on 03/10/171717 COPY T O: SHELBY PHOENIX SITE MEDICAL DIRECTOR
--- OUTSIDE RECORDS SUMMARY | 2018-11-20 14:41 | XMS REPORT | Encounter Summary ---
Author Organization Unknown Address [address] [place] [address] Phone [phone] Care Team Providers Care Supervisor [place] Name Role Phone Dr. Bay Chu 3 [phone] Reason for Visit hospital follow up - TCM (VFP) Instructions 1. Hospital patient transitional care management referral 2. Atypical chest pain gastroenterology referral - Esophageal spasm? needs esophageal manometry. 3. Chest wall pain tizanidine 2 mg tablet 4. Gastroesophageal reflux disease 5. Hyperlipidemia high cholesterol: care instructions pravastatin 40 mg tablet 6. Hypertensive disorder 7. Snoring sleep study referral - Please schedule & contact our patient. thank you. 8. Body mass index 30+ - obesity body mass index: care instructions learning about healthy weight 9. Vaccination for diphtheria, pertussis, and tetanus Adacel (Tdap Adolesn/Adult)(PF)2 Lf-(2.5-5-3-5)-5 Lf/0.5 mL IM syringe Discussion Note: None recorded. Plan of Care Reminders Provider Appointments Est Patient 04/07/2018 4:30PM Bay Miguel MD Lab None recorded. Referral Transitional Care Management Referral 03/24/2018 Care Management Gastroenterology Referral 03/24/2018 Joaquín Simms MD Sleep Study Referral 03/24/2018 [facility] Procedures None recorded. Surgeries None recorded. Imaging None recorded. Medications Name Start Date metoprolol tartrate 25 mg tablet Take 1 tablet every day by oral route for 30 days. pantoprazole 40 mg tablet,delayed release Take 1 tablet every day by oral route for 30 days. pravastatin 40 mg tablet Take 1 tablet every day by oral route as directed. tizanidine 2 mg tablet Take 1 tablet as needed by oral route at bedtime for 14 days. Medications Administered None recorded. Vitals Height Weight BMI Blood Pressure 5 ft 9.6 in 243 lbs 35.3 kg/m2 114/86 mm[Hg] Lab Results None recorded. Allergies Code Code System Name Reaction Severity Status Onset NKDA Problems Name Status Onset Date Source Hyperlipidemia Active 03/24/2018 Hypertensive Disorder Active 03/24/2018 Gastroesophageal Reflux Disease Active 03/24/2018 Procedures Date Name Performed by 06/16/2017 Colonoscopy for Foreign Body Information not available Vaccine List Vaccine Type Tdap 03/24/20180.5 mL Social History Smoking Status Former Smoker Past Encounters 03/24/2018 Hospital Patient; Atypical Chest Pain; Chest Wall Pain; Gastroesophageal Reflux Disease; Hyperlipidemia; Hypertensive Disorder; Snoring; Body Mass Index 30+ - Obesity; Vaccination for Diphtheria, Pertussis, and Tetanus Bay Miguel MD: [address] [place] [address], Ph. History of Present Illness TCM Provider Visit Reported By: Patient HPI: Timing: Date of admit:, Date of discharge:, Please describe what events led up to this hospitalization:, Is Transitional Care Management team involved? No - If No, refer to TCM. Discharge Information: Discharge Diagnoses:, Discharged from: [facility], Discharged to: Home, Hospital Records (H&P, DC Summary, Transition of Care Document) reviewed and scanned? No - records requested, Current Caregivers:family. Functional Status No difficulty following discharge instructions, Taking medications as prescribed, Understands missed doses, Following recommended activity level Notes: CT of the chest was wnl. <div>Still complaining of fatigue, sob not related with activity and pain located in the left side of the chest. pressure type, intensity: 2/10, radiated to the neck.</div> Review of Systems Comprehensive General Adult ROS Reported By: Patient Constitutional: Constitutional: no fever Eyes: Eyes: no vision change Cardiovascular: Cardiovascular: no arm pain on exertion, no palpitations, no lightheadedness Respiratory: Respiratory: no cough, no wheezing, shortness of breath Gastrointestinal: Gastrointestinal: no abdominal pain, no nausea, no vomiting, no constipation, no diarrhea Musculoskeletal: Musculoskeletal: no muscle weakness, no arthralgias/joint pain, no back pain, no swelling in the extremities Neurologic: Neurologic: no loss of consciousness, no headaches Psychiatric: Psych: no depression, no alcohol abuse, no anxiety, no suicidal thoughts Endocrine: Endocrine: fatigue Physical Exam General Adult Exam (male) Reported By: Patient Constitutional: General Appearance: healthy-appearing, obese. Level of Distress: NAD. Ambulation: ambulating normally Psychiatric: Insight: good judgement. Mental Status: active and alert, normal mood, normal affect. Orientation: to time, to place, to person. Memory: recent memory normal, remote memory normal Eyes: Lids and Conjunctivae: non-injected, no discharge. EOM: EOMI ENMT: Ears: TMs clear. Nose: no sinus tenderness. Lips, Teeth, and Gums: no mouth or lip ulcers. Oropharynx: moist mucous membranes Neck: Neck: supple, trachea midline. Thyroid: no enlargement, non-tender Lungs: Respiratory effort: no dyspnea. Percussion: ; Tenderness with palpation in the left side of the chest. Auscultation: breath sounds normal, good air movement, no wheezing, no rales/crackles, no rhonchi Cardiovascular: Heart Auscultation: RRR, normal S1, normal S2, no murmurs Abdomen: Inspection and Palpation: soft, non-distended, no tenderness, no guarding Musculoskeletal:: Motor Strength and Tone: normal, normal tone. Joints, Bones, and Muscles: normal movement of all extremities. Extremities: no edema Neurologic: Gait and Station: normal gait. Cranial Nerves: grossly intact. Coordination and Cerebellum: no tremor Skin: Inspection and palpation: no rash, no lesions
[2018-11-20] MEDS ORDERED: SODIUM CHLORIDE 0.9% 1000ML 1,000 ML IV STA (15:22)
[2018-11-20] MEDS ORDERED: MORPHINE SULFATE INJ 4 MG/ML INJ 1ML IV NR (15:30)
[2018-11-20 15:34] LABS: BASOPHILS # (AUTO) 0.1 (0.0-0.1); BASOPHILS % 1.1 % (0.0-1.0); EOSINOPHILS # (AUTO) 0.2 (0.0-0.4); EOSINOPHILS % 2.3 % (0.0-6.0); HEMOGLOBIN 13.8 g/dL (14.0-18.0); LYMPHOCYTES # (AUTO) 2.1 (1.0-3.2); LYMPHOCYTES % 28.3 % (18.0-39.1); MEAN CORPUSCULAR HEMOGLOBIN 31.7 pg (28-32); MEAN CORPUSCULAR HGB CONC 35.4 g/dL (31-35); MEAN CORPUSCULAR VOLUME 89.7 fL (81-99); MONOCYTES # (AUTO) 0.7 (0.2-0.8); MONOCYTES % 8.9 % (4.4-11.3); NEUTROPHILS # (AUTO) 4.4 (2.1-6.9); NEUTROPHILS % 58.3 % (38.7-80.0); PLATELET COUNT 209 x10e3/uL (140-360); RED BLOOD COUNT 4.35 x10e6/uL (4.3-5.7)
[2018-11-20] MEDS ORDERED: DIATRIZOATE MEGL/DIATRIZOA SOD 30 ML BTL PO ONE (15:39)
[2018-11-20] MEDS ORDERED: ONDANSETRON HCL INJ 2MG/ML 2ML 2 MG/ML VIAL IV ONE (15:45)
[2018-11-20 15:47] LABS: ALANINE AMINOTRANSFERASE 31 IU/L (0-55); ALBUMIN 3.7 g/dL (3.5-5.0); ALBUMIN/GLOBULIN RATIO 1.2 (0.8-2.0); ALKALINE PHOSPHATASE 96 IU/L (40-150); BLOOD UREA NITROGEN 14 mg/dL (7-26); BUN/CREATININE RATIO 14 (6-25); CALCIUM 9.6 mg/dL (8.4-10.2); CARBON DIOXIDE 28 mmol/L (22-29); CHLORIDE 104 mmol/L (98-107); CREATININE, SERUM 1.01 mg/dL (0.72-1.25); EST GLOMERULAR FILTRATION RATE > 60 ML/MIN (60-); GLUCOSE 81 mg/dL (74-118); SODIUM 140 mmol/L (136-145)
[2018-11-20 16:03] LABS: BILIRUBIN,URINE NEGATIVE (NEGATIVE); CLARITY,URINE CLEAR (CLEAR); COLOR,URINE YELLOW (YELLOW); KETONES,URINE NEGATIVE (NEGATIVE); LEUKOCYTE ESTERASE ,URINE NEGATIVE (NEGATIVE); NITRITE,URINE NEGATIVE (NEGATIVE); PROTEIN,URINE DIPSTICK NEGATIVE (NEGATIVE); URINE UROBILINOGEN 0.2 mg/dL (0.2 - 1)
[2018-11-20] MEDS: PIPER-TAZ 3.375 GM 50 ML IV SCH ×3 (16:19→19:27)
[2018-11-20] MEDS ORDERED: SODIUM CHLORIDE 0.9% 50ML 50 ML ONE (16:20)
[2018-11-20] MEDS ORDERED: IOPAMIDOL 370 MG/ML 200 ML INFUS..BTL INJ ONE (16:20)
[2018-11-20] MEDS: METRONIDAZOLE 500MG/NS 100ML 100 ML IV SCH ×2 (16:21→19:27)
[2018-11-20 16:40] LABS: RBC,URINE 0-5 /HPF (0-5); WBC,URINE (MAN) 0-5 /HPF (0-5)
[2018-11-20] MEDS ORDERED: PANTOPRAZOLE 40 MG 10ML VIAL IV NR (16:45)
[2018-11-20] MEDS ORDERED: KETOROLAC TROMETHAMINE 30 MG/ML VIAL IV NR (17:33)
--- NOTE | 2018-11-20 17:53 | Diagnostic Imaging Report ---
EXAM: CT Abdomen and Pelvis WITH contrast INDICATION: ^LLQ ABD PAIN ?DIVERTICULITIS ^[id number] ^[id number] COMPARISON: None. TECHNIQUE: Abdomen and pelvis were scanned utilizing a multidetector helical scanner from the lung base to the pubic symphysis after administration of IV contrast. Coronal and sagittal reformations were obtained. Routine protocol was performed. Scan was performed when during portal venous phase. IV CONTRAST: 100 mL of Isovue-370 ORAL CONTRAST: Gastrografin RADIATION DOSE: Total DLP: 889 mGy*cm Estimated effective dose: (DLP x 0.015 x size factor) mSv COMPLICATIONS: None FINDINGS: LINES and TUBES: None. LOWER THORAX: Coronary artery calcifications. HEPATOBILIARY: No focal hepatic lesions. No biliary ductal dilation. GALLBLADDER: No radio-opaque stones or sludge. No wall thickening. SPLEEN: No splenomegaly. PANCREAS: No focal masses or ductal dilatation. ADRENALS: No adrenal nodules KIDNEYS/URETERS: Kidneys enhance symmetrically. No hydronephrosis. No cystic or solid mass lesions. No stones. GI TRACT: No abnormal distention, wall thickening, or evidence of bowel obstruction. Diffuse diverticulosis of the sigmoid colon with associated surrounding moderate amount of fat stranding but no abscess or fluid collections, better seen on series 2, image 76 and consistent with acute diverticulitis. There is also diffuse wall thickening of the small bowel in the right and left upper quadrant, better seen on series 2, image 39 and image 48. No surrounding fluid collections or fat stranding. Status post appendectomy. PELVIC ORGANS/BLADDER: The prostate is mildly enlarged. The urinary bladder is unremarkable. LYMPH NODES: No lymphadenopathy. VESSELS: Moderate nonobstructing atherosclerotic calcifications of the abdominal aorta without aneurysm. PERITONEUM / RETROPERITONEUM: No free air or fluid. BONES: Unremarkable. SOFT TISSUES: Surgical clips in both scrotal sacs. IMPRESSION: Diffuse diverticulosis with acute diverticulitis of the sigmoid colon. No abscess, free fluid, or free air. Diffuse wall thickening of the small bowel without significant surrounding fat stranding may reflect chronic inflammatory bowel disease. Signed by: Dr. Dai Eugene M.D. on 11/20/2018 5:50 PM
[2018-11-20] MEDS ORDERED: ONDANSETRON HCL INJ 2MG/ML 2ML 2 MG/ML VIAL IV NR (18:00)
[2018-11-20] MEDS ORDERED: MORPHINE SULFATE INJ 4 MG/ML INJ 1ML IV PRN (18:00)
[2018-11-20] MEDS: SODIUM CHLORIDE 0.9% 1000ML 1,000 ML IV SCH (19:38)
[2018-11-20 20:20] VITALS: BP 115/78
[2018-11-20] MEDS: ONDANSETRON HCL INJ 2MG/ML 2ML 2 MG/ML VIAL IV PRN (20:49)
[2018-11-20] MEDS: MORPHINE SULFATE INJ 4 MG/ML INJ 1ML IV PRN (20:50)
[2018-11-20 21:00] VITALS: BP 108/76
--- NOTE | 2018-11-20 21:00 | NUR ---
patient here for abdominal pain, received patient from er, patient on abx and pain meds.
[2018-11-20] MEDS ORDERED: OLOPATADINE 5 ML BTL OP PRN (23:00)
[2018-11-21] VITALS (8 sets, daily range): BP systolic 100–110; BP diastolic 57–83
[2018-11-21] MEDS: MORPHINE SULFATE INJ 4 MG/ML INJ 1ML IV PRN ×5 (00:14→21:25)
[2018-11-21] MEDS: PIPER-TAZ 3.375 GM 50 ML IV SCH ×4 (06:00→17:17)
[2018-11-21 06:22] LABS: BASOPHILS # (AUTO) 0.1 (0.0-0.1); BASOPHILS % 1.5 % (0.0-1.0); EOSINOPHILS # (AUTO) 0.2 (0.0-0.4); EOSINOPHILS % 3.1 % (0.0-6.0); HEMATOCRIT 39.1 % (38.2-49.6); HEMOGLOBIN 13.1 g/dL (14.0-18.0); LYMPHOCYTES # (AUTO) 2.2 (1.0-3.2); LYMPHOCYTES % 35.7 % (18.0-39.1); MEAN CORPUSCULAR HEMOGLOBIN 30.8 pg (28-32); MEAN CORPUSCULAR HGB CONC 33.5 g/dL (31-35); MEAN CORPUSCULAR VOLUME 91.8 fL (81-99); MONOCYTES # (AUTO) 0.6 (0.2-0.8); MONOCYTES % 9.7 % (4.4-11.3); PLATELET COUNT 176 x10e3/uL (140-360); RED BLOOD COUNT 4.26 x10e6/uL (4.3-5.7); RED CELL DISTRIBUTION WIDTH 12.3 % (11.7-14.4)
--- NOTE | 2018-11-21 06:27 | NUR ---
consult called to Dr. Liu office.
--- NOTE | 2018-11-21 06:34 | NUR ---
Dr. Liu called back and acknowledged consult.
[2018-11-21 06:49] LABS: ALANINE AMINOTRANSFERASE 24 IU/L (0-55); ALBUMIN 3.3 g/dL (3.5-5.0); ALBUMIN/GLOBULIN RATIO 1.2 (0.8-2.0); ALKALINE PHOSPHATASE 85 IU/L (40-150); ANION GAP 12.9 mmol/L (8-16); BLOOD UREA NITROGEN 15 mg/dL (7-26); BUN/CREATININE RATIO 14 (6-25); CALCIUM 9.2 mg/dL (8.4-10.2); CARBON DIOXIDE 28 mmol/L (22-29); CHLORIDE 104 mmol/L (98-107); CREATININE, SERUM 1.11 mg/dL (0.72-1.25); EST GLOMERULAR FILTRATION RATE > 60 ML/MIN (60-); GLUCOSE 83 mg/dL (74-118); POTASSIUM 4.9 mmol/L (3.5-5.1); SODIUM 140 mmol/L (136-145)
--- NOTE | 2018-11-21 07:10 | NUR ---
RCD PT AT BED PT IS ALERT AND ORIENTED AND PT RESTING ON BED IV PATENT BY SALINE FLUSH PATENT BED LOW AND LOCKED CALL LIGHT IN REACH
--- NOTE | 2018-11-21 07:28 | NUR ---
patient endorsed to next shift for continuity of care.
[2018-11-21] MEDS: ONDANSETRON HCL INJ 2MG/ML 2ML 2 MG/ML VIAL IV PRN ×3 (08:30→21:25)
[2018-11-21] MEDS: PANTOPRAZOLE 40 MG 10ML VIAL IV SCH (09:00)
[2018-11-21] MEDS: LORATADINE 10 MG TAB PO SCH (09:00)
--- NOTE | 2018-11-21 13:01 | Consultation ---
DATE OF CONSULTATION: 11/21/2018 CHIEF COMPLAINT: Abdominal pain and nausea. HISTORY OF PRESENT ILLNESS: The patient is a 52-year-old male with history of diverticular disease in the past with progressive onset of abdominal pain in left lower quadrant for a few days with nausea. No vomiting. No diarrhea. He denies fever or chills. His last diverticulitis episode was two years ago and was hospitalized for 4 days. PAST MEDICAL HISTORY: Significant for perforated appendicitis. ALLERGIES: THE PATIENT HAD NO DRUG ALLERGIES. SOCIAL HABITS: He does not smoke or drink. REVIEW OF SYSTEMS: No chest pain. No shortness of breath. PHYSICAL EXAMINATION: VITAL SIGNS: Stable. He is afebrile. He is awake, alert, in mild to moderate discomfort. HEENT: Sclerae is anicteric. NECK: Supple. LUNGS: Clear. HEART: Has regular rate and rhythm. ABDOMEN: Soft with guarding tenderness and rebound left lower quadrant. EXTREMITIES: Without cyanosis or edema. LABORATORY DATA: The patient's white cell count is 6, hemoglobin of 13, creatinine of 1.1. CT of the abdomen shows sigmoid diverticulitis without perforation. ASSESSMENT: Acute sigmoid diverticulitis. PLAN: IV antibiotics. The patient currently on clear liquids. We will monitor abdominal exam and leukocytosis. David Liu MD DNVilla/MODL /[id number]
[2018-11-21] MEDS: SODIUM CHLORIDE 0.9% 1000ML 1,000 ML IV SCH ×2 (13:38→17:17)
--- NOTE | 2018-11-21 19:15 | NUR ---
PT RESTING ON BED BED SIDE REPORT GIVEN TO ONCOMING NURSE
[2018-11-21] MEDS: MONTELUKAST SODIUM 10 MG TAB PO SCH (21:25)
[2018-11-22] VITALS (8 sets, daily range): BP systolic 102–130; BP diastolic 66–84
[2018-11-22] MEDS: PIPER-TAZ 3.375 GM 50 ML IV SCH ×4 (05:22→16:36)
[2018-11-22] MEDS: ONDANSETRON HCL INJ 2MG/ML 2ML 2 MG/ML VIAL IV PRN ×3 (05:22→20:58)
[2018-11-22] MEDS: MORPHINE SULFATE INJ 4 MG/ML INJ 1ML IV PRN ×3 (05:22→20:59)
[2018-11-22] MEDS: PANTOPRAZOLE 40 MG 10ML VIAL IV SCH (08:55)
[2018-11-22] MEDS: LORATADINE 10 MG TAB PO SCH (08:55)
[2018-11-22] MEDS: SODIUM CHLORIDE 0.9% 1000ML 1,000 ML IV SCH (13:56)
--- NOTE | 2018-11-22 19:00 | NUR ---
Bedside rounds completed with morning nurse. Pt alert and oriented to name. Lying in bed HOB 30 degrees. Denies pain at this time. Family at bedside. Call light within reach. Will continue to monitor.
--- NOTE | 2018-11-22 19:15 | NUR ---
Report given to oncoming nurse of patient's status. Resting in bed. AAOX4 to time, person, place, situation. Respirations even and unlabored. side rails upx2, call light within reach, at bedside.
[2018-11-22] MEDS: MONTELUKAST SODIUM 10 MG TAB PO SCH (20:58)
[2018-11-23] VITALS (8 sets, daily range): BP systolic 101–130; BP diastolic 61–76
[2018-11-23] MEDS: PIPER-TAZ 3.375 GM 50 ML IV SCH ×4 (06:00→17:00)
[2018-11-23] MEDS: SODIUM CHLORIDE 0.9% 1000ML 1,000 ML IV SCH ×2 (06:00→22:58)
--- NOTE | 2018-11-23 06:45 | NUR ---
Patient resting in bed. c/o mild abd pain, pain medication refused. No acute distress noted. Call mccall within reach.
[2018-11-23] MEDS: LORATADINE 10 MG TAB PO SCH (08:47)
[2018-11-23] MEDS: PANTOPRAZOLE 40 MG 10ML VIAL IV SCH (08:47)
[2018-11-23] MEDS: HYDROCODONE/APAP 7.5MG-325MG 1 EA TAB PO PRN ×2 (08:47→14:37)
--- NOTE | 2018-11-23 18:34 | NUR ---
Resting in bed semi fowlers position, side rails upx2, call light within reach, at bedside. No s/s of acute distress noted. Report to be given to oncoming nurse of patient's status.
--- NOTE | 2018-11-23 18:55 | NUR ---
Completed rounds with morning nurse. Pt alert and oriented to name. Lying in bed HOB 30 degrees. Denies pain at this time. Family at bedside. Call light within reach. Will continue to monitor.
[2018-11-23] MEDS: MONTELUKAST SODIUM 10 MG TAB PO SCH (20:50)
[2018-11-23] MEDS: MORPHINE SULFATE INJ 4 MG/ML INJ 1ML IV PRN (21:35)
[2018-11-23] MEDS: ONDANSETRON HCL INJ 2MG/ML 2ML 2 MG/ML VIAL IV PRN (21:35)
--- NOTE | 2018-11-23 23:52 | NUR ---
Report given on oncoming nurse.
[2018-11-24] MEDS: PIPER-TAZ 3.375 GM 50 ML IV SCH ×2 (00:01→05:47)
[2018-11-24 00:15] VITALS: BP 119/60
[2018-11-24 05:22] LABS: BASOPHILS # (AUTO) 0.1 (0.0-0.1); BASOPHILS % 0.9 % (0.0-1.0); EOSINOPHILS # (AUTO) 0.2 (0.0-0.4); EOSINOPHILS % 3.7 % (0.0-6.0); HEMATOCRIT 37.5 % (38.2-49.6); HEMOGLOBIN 13.1 g/dL (14.0-18.0); LYMPHOCYTES # (AUTO) 1.9 (1.0-3.2); MEAN CORPUSCULAR HEMOGLOBIN 31.4 pg (28-32); MEAN CORPUSCULAR HGB CONC 34.9 g/dL (31-35); MEAN CORPUSCULAR VOLUME 89.9 fL (81-99); MONOCYTES # (AUTO) 0.6 (0.2-0.8); MONOCYTES % 9.1 % (4.4-11.3); NEUTROPHILS # (AUTO) 3.6 (2.1-6.9); NEUTROPHILS % 55.7 % (38.7-80.0); PLATELET COUNT 161 x10e3/uL (140-360); RED BLOOD COUNT 4.17 x10e6/uL (4.3-5.7); RED CELL DISTRIBUTION WIDTH 12.1 % (11.7-14.4)
[2018-11-24 05:40] LABS: ANION GAP 12.3 mmol/L (8-16); BLOOD UREA NITROGEN 9 mg/dL (7-26); BUN/CREATININE RATIO 9 (6-25); CALCIUM 8.7 mg/dL (8.4-10.2); CARBON DIOXIDE 28 mmol/L (22-29); CHLORIDE 107 mmol/L (98-107); CREATININE, SERUM 0.95 mg/dL (0.72-1.25); EST GLOMERULAR FILTRATION RATE > 60 ML/MIN (60-); GLUCOSE 87 mg/dL (74-118); POTASSIUM 4.3 mmol/L (3.5-5.1); SODIUM 143 mmol/L (136-145)
--- NOTE | 2018-11-24 07:00 | NUR ---
RECEIVED AM REPORT FROM NURSE AND MORNING ROUNDS DONE. PT IS ALERT RESTING IN BED, NO S/S OF DISTRESS. CALL LIGHT WITHIN REACH AND INSTRUCTED PT TO CALL RN FOR HELP.
--- NOTE | 2018-11-24 07:15 | NUR ---
Gave report to oncoming nurse. Patient in bed. Call light within reach.
[2018-11-24 07:47] VITALS: BP 142/89
[2018-11-24 07:53] VITALS: BP 142/89
[2018-11-24 12:00] VITALS: BP 107/66
[2018-11-24 16:00] VITALS: BP 114/77
--- NOTE | 2018-11-24 20:39 | Discharge Summary ---
NATIONAL SECRETARY: Dr. David Liu. FINAL DIAGNOSES: 1. Exacerbation of sigmoid diverticulitis without any perforation or abscess. 2. Abdominal pain, nausea, and vomiting, resolved. SUMMARY: The patient is a 52 years old male with diverticular disease, came in with acute abdominal pain associated with nausea and vomiting. The patient is doing much better with Zosyn. He is comfortable. The patient will go home today. Resume his home medication. He will take Augmentin 875 mg twice a day with food for 5 days. Bacid one tablet t.i.d., Zofran p.r.n., MiraLAX 17 g b.i.d., and Leota 10 mg q.6 hours as needed for pain. The patient is stable to discharge home today. Follow up as an outpatient as instructed. MD MARCEL Tejada/MAHAMED /[id number]
== END 2018-11-24 18:07 | disposition home or self-care (01) | DRG 392 ==
LOC: ER 14:39 → ERHOLD 18:14 → MED/SURG2 20:04
PROVIDERS: ADMIT Internal Medicine; ATTEND Internal Medicine
DX: K57.92 Diverticulitis of intestine, part unspecified, without perforation or abscess without bleeding (principal); J30.9 Allergic rhinitis, unspecified
CPT/HCPCS: 36415; 74177; 80048; 80053; 81001; 83605; 85025; 99284; J1885; J2270; J2405; J2543; J7030; Q9967

== ENCOUNTER 2021-12-17 07:09 | Emergency (ER) | payer BC, OTHER ==
[~2021-12-17] VITALS: Ht 180.3 cm; Wt 95.3 kg
[2021-12-17] MEDS ORDERED: HYDROCODONE/APAP 5MG-325MG TAB PO ONE (07:30)
[2021-12-17] MEDS ORDERED: HYDROCODON-ACE1 EA11 PO (10:09)
== END 2021-12-17 10:21 | disposition home or self-care (01) ==
LOC: ER 07:13
DX: M25.562 Pain in left knee (principal)
CPT/HCPCS: 99283